=== PATIENT | male | born 1990 | race Caucasian/White ===

== ENCOUNTER 2018-11-02 12:06 | Emergency (ER) | payer SELFPAY ==
[~2018-11-02] VITALS: Ht 172.7 cm; Wt 79.4 kg
[2018-11-02] MEDS ORDERED: IBUPROFEN 600 MG TABLET PO ONE (12:45)
[2018-11-02] MEDS ORDERED: IBUPROFEN 600 MG TABLET ONE (12:53)
[2018-11-02 13:14] LABS: BASOPHILS % (AUTO) 0.2 % (0.0-2.0); EOSINOPHILS # (AUTO) 0.1 K/uL (0.0-0.7); EOSINOPHILS % (AUTO) 0.9 % (0.0-7.0); HEMATOCRIT 47.2 % (36.7-47.1); HEMOGLOBIN 15.9 g/dL (12.5-16.3); LYMPHOCYTES # (AUTO) 1.9 K/uL (20.0-40.0); LYMPHOCYTES % (AUTO) 24.6 % (20.5-51.5); MEAN CORPUSCULAR HEMOGLOBIN 28.5 uug (23.8-33.4); MEAN CORPUSCULAR HGB CONC 34 g/dL (32.5-36.3); MEAN CORPUSCULAR VOLUME 84.4 fL (73.0-96.2); MONOCYTES # (AUTO) 0.6 K/uL (2.0-10.0); MONOCYTES % (AUTO) 8.1 % (0.0-11.0); NEUTROPHILS % (AUTO) 66.2 % (38.5-71.5); PLATELET COUNT (AUTO) 239 K/uL (152-348); RED BLOOD CELL COUNT(AUTO) 5.59 MIL/uL (4.06-5.63); WHITE BLOOD COUNT (AUTO) 7.5 K/uL (3.6-10.2)
[2018-11-02 13:28] LABS: CREATININE 0.8 mg/dL (0.6-1.3)
[2018-11-02 13:33] LABS: *MONOTEST NEGATIVE (NEGATIVE)
--- NOTE | 2018-11-02 13:48 | NUR ---
Patient discharged to home in stable conditon. Written and verbal after care instructions given. Patient verbalizes understanding of instructions.
== END 2018-11-02 13:50 | disposition home or self-care (01) ==
LOC: ER 12:06
DX: J02.8 Acute pharyngitis due to other specified organisms (principal); B97.89 Other viral agents as the cause of diseases classified elsewhere
CPT/HCPCS: 36415; 85025; 86308; A4663